=== PATIENT | female | born 1970 | race Two or more races ===

== ENCOUNTER 2024-07-25 20:12 | Emergency (ER) | payer MEDICAID ==
[~2024-07-25] VITALS: Ht 154.9 cm; Wt 124.7 kg
[2024-07-25 21:01] LABS: BASOPHILS % (AUTO) 0.4 % (0.0-2.0); EOSINOPHILS % (AUTO) 0.1 % (0.0-6.0); HEMATOCRIT 37 % (33-45); LYMPHOCYTES # (AUTO) 1.9 K/uL (0.8-4.8); MEAN CORPUSCULAR HEMOGLOBIN 32 PG (26.0-33.0); MEAN CORPUSCULAR HGB CONC 32 g/dl (31.0-36.0); MEAN CORPUSCULAR VOLUME 98 fL (82-100); MONOCYTES # (AUTO) 1.1 K/uL (0.1-1.30); MONOCYTES % (AUTO) 9.8 % (2.0-12.0); NEUTROPHILS # (AUTO) 8.3 K/uL (1.8-8.9); NEUTROPHILS % (AUTO) 72.7 % (43.0-81.0); PLATELET COUNT (AUTO) 280 K/uL (150-450); RED BLOOD CELL COUNT(AUTO) 3.78 MIL/uL (4.0-5.2); RED CELL DISTRIBUTION WIDTH 15.5 % (11.5-15.0); WHITE BLOOD COUNT (AUTO) 11.4 K/uL (4.3-11.0)
[2024-07-25 21:24] LABS: CALCIUM, SERUM 9.3 mg/dL (8.5-10.1); CARBON DIOXIDE 24 mmol/L (21-32); CHLORIDE 106 mmol/L (98-107); GLUCOSE 130 mg/dL (74-106); POTASSIUM 3.8 mmol/L (3.5-5.1); SODIUM SERUM 139 mmol/L (136-145); UREA NITROGEN, BLOOD 20 mg/dL (7-18)
[2024-07-25 21:36] LABS: NT-PRO BNP 122 pg/mL (0-125)
[2024-07-25] MEDS ORDERED: MAG HYDROX/AL HYDROX/SIMETH 30 ML UDC ONE (22:26)
[2024-07-25] MEDS: MAG HYDROX/AL HYDROX/SIMETH 30 ML UDC PO ONE (22:27)
[2024-07-25] MEDS ORDERED: KETOROLAC TROMETHAMINE INJ 30 MG/ML VIAL ONE (22:53)
[2024-07-25] MEDS: KETOROLAC TROMETHAMINE INJ 30 MG/ML VIAL IV ONE (22:59)
[2024-07-25 23:23] VITALS: BP 138/81; TEMP 98; O2SAT 99
== END 2024-07-25 23:23 | disposition home or self-care (01) ==
LOC: ER 20:15
DX: R07.9 Chest pain, unspecified (principal); R06.02 Shortness of breath; R60.0 Localized edema; D64.9 Anemia, unspecified
CPT/HCPCS: 99285; 96374; 71045; 93005; 85025; 80048; 36415; 84484 ×2; 83880; J1885

== ENCOUNTER 2024-08-28 01:08 | Emergency (ER) | payer MEDICAID ==
[~2024-08-28] VITALS: Ht 157.5 cm; Wt 137.4 kg
[2024-08-28] MEDS ORDERED: HYDROCODONE/APAP 5/325MG TABLET ONE (02:42)
[2024-08-28] MEDS: HYDROCODONE/APAP 5/325MG TABLET PO ONE (02:47)
[2024-08-28] MEDS ORDERED: HYDR-3972 PO (03:30)
[2024-08-28 05:00] VITALS: BP 156/96; TEMP 98.7; O2SAT 94
== END 2024-08-28 05:00 | disposition home or self-care (01) ==
LOC: ER 01:10
DX: S22.41XA Multiple fractures of ribs, right side, initial encounter for closed fracture (principal); R05.3 Chronic cough; X58.XXXA Exposure to other specified factors, initial encounter; Y93.89 Activity, other specified; Y92.89 Other specified places as the place of occurrence of the external cause; Y99.8 Other external cause status
CPT/HCPCS: 71250-TC